=== PATIENT | female | born 1955 | race Caucasian/White ===

== ENCOUNTER 2017-03-31 10:27 | Outpatient (CLI) ==
[2017-03-31] MEDS ORDERED: PROLIA SUBCUT STA (10:43)
[2017-03-31 10:48] VITALS: BP 108/56; TEMP 97.8
== END 2017-03-31 10:28 | disposition home or self-care (01) ==
LOC: OPMED 10:27
PROVIDERS: ATTEND Internal Medicine
DX: M81.0 Age-related osteoporosis without current pathological fracture (principal)
CPT/HCPCS: 96372